=== PATIENT | male | born 1985 | race Caucasian/White ===

== ENCOUNTER 2016-07-24 19:42 | Observation (INO) ==
--- NOTE | 2016-07-24 19:51 | Emergency Department Note ---
Disposition Clinical Impression: Hypoxia, Opiate overdose, Aspiration into airway Disposition: Admitted As Inpatient Condition: Fair General Adult HPI - General Chief complaint: ED Overdose Stated complaint: Overdose Time Seen by Provider: 07/24/16 19:43 Source: patient Limitations: no limitations - History of Present Illness Pain Scale: 0 - Related Data Home Medications Medication Instructions Recorded Confirmed Naproxen [Naprosyn] 500 mg PO BID 07/24/16 07/24/16 Allergies Allergy/AdvReac Type Severity Reaction Status Date / Time No Known Allergies Allergy Verified 03/13/15 18:33 Past Medical History - Past Medical History Medical history: Reports: non-contributory Surgical history: Reports: other Psychiatric history: Reports: no psych history - Social History Smoking Status: Current every day smoker Smokeless Tobacco Status: No Alcohol use: Reports: none Drug use: Reports: IVDU, prescription drug abuse, other Physical Exam - General Limitations: no limitations General appearance: alert, in no apparent distress Course Vital Signs Temperature 0 F L 07/24/16 19:44 Pulse Rate 116 07/24/16 19:44 Respiratory Rate 16 07/24/16 19:44 Blood Pressure 136/95 07/24/16 19:44 O2 Sat by Pulse Oximetry 89 L 07/24/16 19:44 Temperature 0 F L 07/24/16 19:44 Pulse Rate 91 07/24/16 22:03 Respiratory Rate 16 07/24/16 22:22 Blood Pressure 130/77 07/24/16 22:22 O2 Sat by Pulse Oximetry 92 L 07/24/16 22:03 Oxygen Delivery Oxygen Delivery Nasal Cannula Medical Decision Making - Lab Data Lab Results 07/24/16 Range/Units 19:54 POC Glucose 186 H (58-89) Critical Care Time Critical Care Time: Yes Total Critical Care Time: 30 Attestation: The patient presented after an accidental opiate overdose requiring supplemental oxygen and admission to the hospitalist service due to hypoxia Attestation Statement - Attestation Attestation: I examined this patient and my medical decision-making was reviewed with the [employer]AB[employer]UT[employer] SPECIALIST/PA/Advanced Practice Nurse/Resident Physician. I agree with the documented findings, disposition and treatment plan as described except to the extent set forth below. [id number]-bq-[id number] time provided Patient presents via EMS after an unintentional overdose. He admits to snorting heroin. Narcan provided prehospital with resolution of symptoms. Patient denies suicidal ideation 20:27: The patient is marginally hypoxic with a pulse ox in the high 80s. I am concerned about aspiration pneumonitis and even the potential for him to develop noncardiogenic pulmonary edema. I advised the patient to remain in the emergency department at this time for further observation and evaluation. He is hesitant to do so and wants to go home in the care of his family. 21:30: The patient desaturated with ambulation. He was agreeable to be admitted for observation
--- NOTE | 2016-07-24 19:59 | Emergency Department Note ---
Overdose - MDM Narrative Medical decision making narrative: 31-year-old male admitted for hypoxia, aspiration, status post overdose of opiate suspect heroin, admitted hospital service in stable condition however moderately hypoxic satting on 4 L of oxygen in the low 90s - Differential Diagnosis Likely: suicide attempt by multiple drug overdose, intentional overdose - Medical Records Medical records reviewed: Yes I reviewed the patient's medical records. - Lab Data Lab results reviewed: Yes I reviewed the patient's lab results. Lab Results 07/24/16 Range/Units 19:54 POC Glucose 186 H (58-89) - Radiology Data Radiology results reviewed: Yes I reviewed the patient's radiology results. Chest X-Ray 07/24/16 19:54 IMPRESSION: No acute cardiopulmonary disease. D/ / 07/24/2016 20:34:04 Chris Vyas MD / chandler Interpreting Provider: Chris Vyas MD - EKG Data EKG attestation: Yes I reviewed and interpreted this EKG. EKG shows normal: sinus rhythm Rate: tachycardia (90s per minute [place] 177 QRS 110 QTC 4:15 and no evidence of QT or QRS prolongation, no ST segment elevations or depressions, left axis deviation.) Rhythm: NSR Overdose HPI - General Chief Complaint: ED Overdose Stated Complaint: Overdose Time Seen by Provider: 07/24/16 19:43 Source: patient Limitations: no limitations Nursing Notes Reviewed: Yes Vital Signs Reviewed: Yes - History of Present Illness HPI Narrative: 31-year-old male brought in by EMS, for overdose suspected, patient was found by police at his residence, is mom called EMS after finding him on the toilet, blue and unresponsive, she did several rounds compressions, he vomited several times and she placed him on his side, he had sonorous respirations, police then arrived in administered approximately 6 mg of Narcan, initially this did not provide the patient 8 mg total was initial was given and he became more alert. He arrives by EMS, denies chest pain by pain headache, he reports that he just passed out and has episode of swells quite frequently. He states that he has no history of seizures, and takes no medications for these spells. When further asked, the patient does admit to inhaling heroine, and denies any other medications or substance abuse this evening. The patient requests that no information be given to his mother, was arrived at bedside, she gives a full history herself, and no information was shared with family that the patient did not consent to be shared. Pt Subjective Complaint: accidental overdose Timing confirmed by: family member Intent: accidental Treatments Prior to Arrival: oxygen, narcan (8mg), IV fluids - Related Data Home Medications Medication Instructions Recorded Confirmed Naproxen [Naprosyn] 500 mg PO BID 07/24/16 07/24/16 Allergies Allergy/AdvReac Type Severity Reaction Status Date / Time No Known Allergies Allergy Verified 03/13/15 18:33 All systems ED: reviewed and negative except as stated. Constitutional: Denies: fever, chills, weakness Eyes: Denies: eye pain, eye discharge Cardiovascular: Denies: chest pain, palpitations Respiratory: Reports: as per HPI, dyspnea. Denies: wheezes, hemoptysis Gastrointestinal: Denies: abdominal pain, nausea, vomiting Musculoskeletal: Denies: back pain, neck pain Neurological: Denies: headache, weakness Psychiatric: Denies: suicidal thoughts, homicidal thoughts Past Medical History - Past Medical History Attestation: Yes The following information was validated with the patient. Source: patient Medical history: Reports: non-contributory Surgical history: Reports: other Psychiatric history: Reports: no psych history - Social History Smoking Status: Current every day smoker Smokeless Tobacco Status: No Alcohol use: Reports: none Drug use: Reports: IVDU, prescription drug abuse, other Physical Exam Constitutional: Patient somewhat groggy, alert and oriented 2, mild hypoxia at 88% on 2 L, HEENT: NCAT, sclera anicteric, PERRLA bilaterally, normal external ears bilaterally, nasal septum nondeviated, average dentition, dried vomitus around the mouth. MMM Neck: normal inspection, neck is supple, trachea midline, no JVD Resp: rhonchus breath sounds bilaterally. CV: RRR, no m/g/r, Pulses +2 Rad, +2 DP/PT bilaterally, no pedal edema GI: normal inspection, Soft, NTND, BS present and normoactive Back: normal inspection, no tenderness to palpation Neuro: GCS 14 [id number], no focal deficits. MSK: normal inspection, bilateral UE and LE with normal ROM and no deformities Psych: Denies suicidal or homicidal ideation. Skin: No rashes, skin warm, dry, intact - General Limitations: no limitations General appearance: alert, in no apparent distress Course Course Narrative: 31-year-old male with probable overdose on heroin, inhaled, patient declines when necessary information with his mother who is now bedside providing most of the history of what transpired, he had a witnessed episode of apnea hypoxia, with chest compressions given although unclear if he ever lost his pulse, provide with Narcan at the scene, currently is somewhat groggy alert and oriented 2 however mildly hypoxic on 2 L she was 88% we have him up on 4 L nasal 89% chest x-ray looks unremarkable for obvious aspiration pneumonitis, we will observe in the emergency department and determine definitive management observation versus discharge. - Reevaluation(s) Reevaluation #1: Patient was ambulated, without oxygen his pulse ox dropped from 91-83%, even at rest he covers in the 86-87% rate which on room air, and only improved to 90% with 4 L of oxygen, still coughing, mildly groggy and disoriented, will admit hospitalist service for opiate overdose suspect heroin, chest compressions given field, pop probable aspiration pneumonitis, hypoxia. Hospitalist paged Time: 21:32 Reevaluation #2: Admitted to Dr Parkinson, who requested CBC, BMP, UDS which were added to lab workup , currently stable with oxygen 90% on 2L Vital Signs Temperature 0 F L 07/24/16 19:44 Pulse Rate 116 07/24/16 19:44 Respiratory Rate 16 07/24/16 19:44 Blood Pressure 136/95 07/24/16 19:44 O2 Sat by Pulse Oximetry 89 L 07/24/16 19:44 Temperature 0 F L 07/24/16 19:44 Pulse Rate 85 07/24/16 21:25 Respiratory Rate 16 07/24/16 21:25 Blood Pressure 99/69 07/24/16 21:25 O2 Sat by Pulse Oximetry 100 07/24/16 21:25 Oxygen Delivery Oxygen Delivery Room Air Disposition Clinical Impression: Hypoxia Opiate overdose Qualifiers: Encounter type: initial encounter Injury intent: accidental or unintentional Qualified Code(s): T40.601A - Poisoning by unspecified narcotics, accidental ( unintentional), initial encounter Aspiration into airway Qualifiers: Encounter type: initial encounter Qualified Code(s): T17.908A - Unspecified foreign body in respiratory tract, part unspecified causing other injury, initial encounter Disposition: Admitted As Inpatient Condition: Fair Referrals: NO,PCP [Primary Care Provider] - Forms: ED Satisfaction Letter Time of Disposition: 21:31
[2016-07-24] MEDS ORDERED: cloNIDine HCl 0.1 MG TABLET PO ONE (21:35)
[2016-07-24] MEDS ORDERED: Acetaminophen 325 MG TABLET PO PRN (22:51)
[2016-07-24] MEDS ORDERED: Naloxone 0.4 MG/ML INJ IVP PRN (22:51)
[2016-07-24] MEDS ORDERED: Ondansetron ODT 4 MG TAB.RAPDIS SL PRN (22:51)
[2016-07-24] MEDS ORDERED: Ketorolac 30 MG/ML VIAL IVP PRN (22:51)
--- NOTE | 2016-07-24 23:00 | Internal Med History&Physical ---
<Muriel Garcias - Last Filed: 07/24/16 23:56> Date of Encounter: 07/24/16 Time of Encounter: 22:53 Assessment and Plan (1) Opiate overdose Status: Acute Patient presents via EMS after herion overdose and received 6mg Narcan in the field. He is currently awake and oriented but groggy and states that he is very tired. He is protecting his airway. Patient denies use of any other medications, drugs or EtOH tonight however do not have a UDS yet and patient has history of polysubstance use with benzos. 1. 2m of Narcan now 2. Narcan gtt - 2mg over 10 hours 3. NPO except ice chips, advance diet in the morning 4. Clonidine 0.1mg PO TID 5. Urine drugs screen 6. [facility] protocol - concern for polysubstance use 7. Thiamine and Vitamine B complex - unknown EtOH use 8. Cardiac monitoring 9. Seizure, fall and aspiration precautions 10. Consult placed to social media director Qualifiers: Encounter type: initial encounter Injury intent: accidental or unintentional Qualified Code(s): T40.601A - Poisoning by unspecified narcotics , accidental (unintentional), initial encounter (2) Hypoxia Status: Acute Patient with hypoxia - currently requiring 4L supplemental O2 to maintain O2 saturation around 90%. He desaturates into the low 80s upon ambulation. Cause of hypoxia is unknown but may be secondary to aspiration pneumonitis but other concerns include septic emboli or PE. Will get a CT chest and provide supportive care. 1. Continuous pulse ox with supplemental O2 as needed, wean as tolerated 2. Breathing treatment 3. CT chest (3) DVT prophylaxis Status: Acute Heparin for DVT propylaxis. Internal Medicine - H&P: HPI Chief complaint: Found unresponsive, Heroin OD Admitted From: Emergency Dept Plans for Post Hospital Care: Home History of present illness: Mr. Trinidad is a 31 year old male with PMH of HTN and IV drug use who is brought to the ED by EMS. Patient was found unresponsive on the toilet by his mother. Mother is not available to talk to at this time. Per ED note, she found the patient unresponsive, did chest compressions and patient started vomiting. On arrival of EMS/PD, patient was given 4mg of narcan that initially did not reverse his symptoms. A second dose of narcan was given and patient became more alert. Total dose of narcan was 6mg. In the ED, patient improved - was groggy but alert and oriented. He was found to be hypoxic on room air at 89% on 4L and desaturated into the low 80s while ambulating. CXR showed no acute abnormalities. Patient reports that he was snorting heroin tonight, however PD also report a needle found on scene. He states that the overdose was not intentional and he denies any suicidal or homicidal ideations. Patient denies use of any other drugs, medications or alcohol tonight. He currently reports a headache, 4/10 in severity and some chronic back pain. Patient denies any chest pain or shortness of breath. On my exam, patient was awake but groggy and states that he is very tired. He is oriented to person, place and situation. Pupils are equal and reactive. Breath sounds diminished bilaterally. Abdomen soft, non-tender. No pedal edema. Past Med Surg Social Fam HX - Past Medical History Medical history: non-contributory Psychiatric history: no psych history - Past Surgical History Surgical History: other - Social History Smoking Status: Current every day smoker Smokeless Tobacco Status: No Alcohol use: none Drug use: IVDU, prescription drug abuse, other Internal Medicine - H&P: Meds Naproxen [Naprosyn] 500 mg PO BID 07/24/16 [History] Allergies No Known Allergies Allergy (Verified 03/13/15 18:33) All Systems PM: A 10-system review of systems was performed and is negative for pertinent findings except as documented above in the HPI. - Constitutional Constitutional: no chills, no fever(s) - EENT Eyes: no change in vision - Cardiovascular Cardiovascular ROS IM: no chest pain, no dyspnea, no edema, no irregular heart rhythm, no palpitations - Respiratory Respiratory: no cough, no dyspnea - Gastrointestinal Gastrointestinal: nausea, vomiting, no abdominal pain, no constipation, no diarrhea - Genitourinary Genitourinary ROS male: no difficulty urinating - Musculoskeletal Musculoskeletal ROS IM: back pain - Neurological Neurological ROS: headache(s) - Psychiatric Psychiatric: no hallucinations, no homicidal ideation, no suicidal ideation - Constitutional Vitals: Temp Pulse Resp BP Pulse Ox 0 F L 91 16 130/77 92 L 07/24/16 19:44 07/24/16 22:03 07/24/16 22:22 07/24/16 22:22 07/24/16 22:03 General appearance: Present: A&O X 3, no acute distress Exam: sleepy - Head Head exam: Present: atraumatic, normal inspection, normocephalic - Eye Eye exam: Present: EOMI, normal appearance, PERRL - Respiratory Respiratory exam: Present: decreased breath sounds. Absent: rales, respiratory distress, rhonchi, wheezes - Cardiovascular Cardiovascular exam: Present: RRR - GI/Abdominal GI/Abdominal exam: Present: soft. Absent: distended, guarding, rebound, rigid, tenderness - Extremities Exam Extremities exam: Present: normal capillary refill, normal inspection. Absent: mottling, pedal edema - Neurological Exam Neurological exam: Present: alert, CN II-XII intact, oriented X3, no focal deficits <González Addison - Last Filed: 07/25/16 07:27> Date of Encounter: 07/24/16 Internal Medicine - H&P: HPI History of present illness: Mr. Trinidad is a 31 year old male I examined this patient and my medical decision-making was reviewed with the Resident Physician. For this encounter, I have reviewed the documentation, treatment plan, and medical decision making. I agree with the documented findings, disposition and treatment plan as described except to the extent set forth below. All Systems PM: A 10-system review of systems was performed and is negative for pertinent findings except as documented above in the HPI. - Constitutional Vitals: Temp Pulse Resp BP Pulse Ox 97.8 F 114 16 136/80 96 07/24/16 23:08 07/24/16 23:08 07/24/16 23:08 07/24/16 23:08 07/24/16 23:08 Internal Med - H&P Results - Labs Labs: Vital Signs Temp Pulse Resp BP Pulse Ox 07/24/16 23:08 97.8 F 114 16 136/80 96 07/24/16 22:22 16 130/77 07/24/16 22:03 91 16 138/83 92 L 07/24/16 21:25 85 16 99/69 91 L 07/24/16 20:28 101 16 125/64 92 L 07/24/16 19:44 0 F L 116 16 136/95 89 L Intake and Output 07/24/16 07/24/16 07/25/16 15:59 23:59 07:59 Other: Weight 97.3 kg Blood Glucose* 186 - Impressions ITS Impressions Chest CT 07/25/16 00:20 IMPRESSION: Ground-glass perihilar infiltrates are noted which could be related to pulmonary edema or multifocal pneumonia. D/ / Yaneli Le MD / Yaneli Le MD Interpreting Provider: Yaneli Le MD Abnormal lab results POC Glucose 186 (58-89) H 07/24/16 19:54 Laboratory Results POC Glucose 186 (58-89) H 07/24/16 19:54 Impressions Chest X-Ray 07/24/16 19:54 IMPRESSION: No acute cardiopulmonary disease. D/ / 07/24/2016 20:34:04 Chris Vyas MD / chandler Interpreting Provider: Chris Vyas MD Chest CT 07/25/16 00:20 IMPRESSION: Ground-glass perihilar infiltrates are noted which could be related to pulmonary edema or multifocal pneumonia. D/ / Yaneli Le MD / Yaneli Le MD Interpreting Provider: Yaneli Le MD - Attending Attestation My signature below is to certify that this patient is under my care and that I, or the Resident Physician working with me, has had a [id number] encounter with this patient.
[2016-07-24] MEDS ORDERED: 0.9 % Sodium Chloride 1,000 ML IVC STA (23:03)
[2016-07-24] MEDS ORDERED: Naloxone 0.4 MG/ML INJ IVP STA (23:04)
[2016-07-24] MEDS ORDERED: Naloxone 2 MG in 0.9 % Sodium Chloride 500 ML IVC SCH (23:04)
[2016-07-24] MEDS ORDERED: *HR* LORazepam 2 MG/ML VIAL IVP PRN ×2 (23:08)
[2016-07-24] MEDS ORDERED: *HR* Promethazine 25 MG/ML VIAL IVP PRN (23:08)
[2016-07-24 23:15] VITALS: BP 136/80
[2016-07-24] MEDS ORDERED: traZODone 50 MG TABLET PO PRN (23:18)
[2016-07-24] MEDS ORDERED: Haloperidol Lactate 5 MG/ML VIAL IVP PRN (23:18)
[2016-07-24] MEDS ORDERED: Ipratropium/Albuterol Neb 3 ML IH PRN (23:42)
[2016-07-24] MEDS: 0.9 % Sodium Chloride 1,000 ML IVC SCH (23:44)
[2016-07-25] MEDS: 0.9 % Sodium Chloride 1,000 ML IVC SCH (00:47)
[2016-07-25] MEDS ORDERED: *HR* Heparin 5,000 UNIT/ML VIAL SQ SCH (07:00)
[2016-07-25] MEDS ORDERED: Folic Acid 1 MG TABLET PO SCH (09:00)
[2016-07-25] MEDS ORDERED: Thiamine (B-1) 100 MG TABLET PO SCH (09:00)
[2016-07-25] MEDS ORDERED: Vitamin B Complex/Vit C/Vit E 1 EACH TABLET PO SCH (09:00)
[2016-07-25] MEDS ORDERED: cloNIDine HCl 0.1 MG TABLET PO SCH (09:00)
--- NOTE | 2016-07-25 09:59 | Electrocardiograph Report ---
[address] [address] Test Date: 2016-07-24 Pat Name: Alexandre Trinidad Department: 103 Room: 3B24 Gender: M Electronic Imaging System Operator: : 1985 Requested By: Vern Wolf Order Number: [id number] Reading MD: Claudette Campbell Measurements Intervals [place] Rate: 109 P: 50 WI: 177 QRS: 58 QRSD: 110 T: 55 QT: 351 QTc: 415 Interpretive Statements SINUS TACHYCARDIA ABNORMAL RHYTHM ECG Electronically Signed On 07-25-2016 9:57:53 EST by Claudette Campbell
[2016-07-25] MEDS ORDERED: Melatonin 3 MG TABLET PO SCH (21:00)
== END 2016-07-25 01:55 | disposition left against medical advice (07) ==
LOC: EMEROO 19:42 → 3BNU 19:42
PROVIDERS: ADMIT Internal Medicine; ATTEND Nurse Practitioner Family